=== PATIENT | female | born 1970 | race Caucasian/White ===

== ENCOUNTER 2023-05-08 10:33 | Outpatient (REF) | payer OTHER, SELFPAY ==
--- NOTE | 2023-05-08 09:30 | PAPFT_PTH ---
PATIENT: Atiya Sharma LOC: [facility]#:[id number] AGE/SX: 52/F ROOM: RE05/08/[address]: Mak Darby : 1970 BED: DIS: 05/08/2023 SPEC #: [id number] RECD: 05/09/23 13:02 STATUS: NIR REJohn #: [id number] DIONISIO: 05/08/23 09:[address]: Maureen Darby DEPT: [facility] Cytology RECD BY: Lexie Gonzales Tissues: 1 - CX/ENDOCX FOR PAP SMEARS Procedures: PAP THIN PREP/UVM Screening HPV DNA PROBE Comments: [id number]
== END 2023-05-08 10:34 | disposition home or self-care (01) ==
LOC: NCHCN 10:33
PROVIDERS: Visit Provider Nurse Practitioner Family
DX: Z12.4 Encounter for screening for malignant neoplasm of cervix (principal); Z11.51 Encounter for screening for human papillomavirus (HPV)
CPT/HCPCS: 88142; 87624

== ENCOUNTER → 2023-06-12 01:07 | Outpatient (CLI) | payer OTHER, SELFPAY ==
--- NOTE | 2023-06-12 | DI.MAMMO_ITS ---
Exam(s) MAMMO SCREENING EXAM: MAMMO SCREENING CLINICAL HISTORY: SCREENING, Z12.39. TECHNIQUE: Bilateral full field digital CC and MLO mammographic images were obtained with 3D tomosyn thesis and utilizing computer aided detection (CAD). COMPARISON: Prior outside mammograms were reviewed. FINDINGS: There has been no significant change in the appearance and distribution of the fibroglandular tissue. There are no CAD designations. No new findings in the right breast. In the left breast there are 2 small benign-appearing nodular densities located 7 cm in from the nipp le on the CC view and appearing unchanged from prior mammograms. There are no new spiculated masses nor malignant-appearing microcalcification groups in either breast . There is no significant architectural distortion nor skin thickening-retraction. IMPRESSION: Stable benign findings. No radiographic evidence of malignancy. BI-RADS Category 2 - Benign Findings Breast Density - Category B - Scattered areas of fibroglandular density Breast density Category C or D implies that the patient has dense breast tissue. Dense breast tissue can make it harder to find cancer on a mammogram. Dense breast tissue is also associated with an incr eased risk of breast cancer. This information about the result of the mammogram report was provided to the patient to raise their awareness. Use this report when you speak with the patient about their risks for breast cancer, which includes their family history. At that time, you may recommend additional screening tests (Ultrasoun d or MRI) as these tests may add significant information. A negative radiographic report should not delay biopsy if a dominant or clinically suspicious mass is present. Up to ten percent of cancers are not identified on mammography. A negative report may reinforce clinical impression. Adenosis and dense breasts may obscure an underlying neoplasm. False positive reports average 6 to 10%. Patient will receive a letter notifying them of these results.
== END ==
PROVIDERS: PCP Nurse Practitioner Family; Visit Provider Nurse Practitioner Family
DX: Z12.31 Encounter for screening mammogram for malignant neoplasm of breast (principal)
CPT/HCPCS: 77063; 77067

== ENCOUNTER 2023-12-25 06:05 | Day surgery (SDC) | payer OTHER, SELFPAY ==
--- NOTE | 2023-12-24 11:29 | W.PM.DSUDISC ---
Date of service: 12/25/23 Time of Service: 07:56 Discharge Plan Disposition Patient Disposition: Home Condition: Good Discharge Details Reason For Visit: screening colonoscopy Attending Provider: Devaughn Jaime Primary Care Provider: Maureen Darby Home Meds and New Rx's Prescriptions: Continued naproxen 250 mg tablet 500 mg PO BID PRN Discharge Instructions Additional Instructions: Krystal, we were able to complete your colonoscopy today without any difficulty. He did have a little bit of inflammation in the lower portion of your rectum, which is also called proctitis. From the look of it, I suspect it is just some irritation from the bowel prep. Regardless, I did do some biopsies just to be safe. I really do not think this is anything at all to worry about. Otherwise, your colonoscopy is totally normal. Once I have the results of the biopsies I will be in touch. We will use that information to help inform the timing of your next colonoscopy. 1. If tolerated, consume a soft, low fiber diet for 1-2 days. 2[address] Do not drive, drink alcohol, operate machinery, make critical decisions, or do activities that require coordination or balance for 24 hours. 3. Because air was put into your colon during the procedure, expelling air from your rectum (passing gas or farting) is normal. 4. You may not have a bowel movement for 1-3 days because of the colonoscopy prep. This is normal. 5. Go directly to the emergency room if you notice any of the following: Develop chills (warm to touch), or if you have a thermometer and your temperature is above 101 Difficulty breathing or difficultly swallowing Persistent vomiting Severe abdominal pain, other than gas cramps Severe chest pain Black, tarry stools Any bleeding ? exceeding one tablespoon 6. Call your physician if the site where your intravenous was started becomes red, swollen, painful, and warm to touch. 7. Your physician has reviewed your pre-procedure medications. Please continue to take those medications as previously ordered. You will be given specific information/education regarding any changes to your medications before leaving. Activity:: Activity as Tolerated Diet:: As Tolerated Discharge Orders Discharge Orders: Discharge Order (Routine); Ordered 12/24/23 Ordered By: Devaughn Jaime DS: Diagnosis Discharge Diagnosis (1) Encounter for screening colonoscopy: Status: Acute Asessment and Plan: Follow-up on biopsy results
--- NOTE | 2023-12-24 11:31 | COLE_ITS ---
Date of service: 12/25/23 Time of Service: 07:57 Colonoscopy Report Date of procedure: 12/25/23 Pre-op diagnosis general: screening colonoscopy Post-op diagnosis procedure note: other (Negative screening colonoscopy) Procedure: colonoscopy with biopsies Surgeon: Devaughn Jaime Anesthesia Type: General:No Airway Estimated blood loss (mL): 5 Pathology: other (Rectal biopsies) Complications: None Disposition: same day Indications: Atiya is a 52 year old woman who needs a screening colonoscopy Prep: Miralax/Dulcolax Procedure Start Time: 07:33 Procedure End Time: 07:48 Retraction Time: 5 Findings: Mild proctitis Procedure Description: After the induction of monitored anesthetic care, and with the patient in left lateral decubitus position, I began by performing an external anorectal exam.? Perineum and skin were normal, as was the anal verge.? There was no evidence of external hemorrhoids.? Next, I performed a digital rectal exam.? I did not appreciate any abnormal findings.? Next, I advanced a colonoscope into the rec bettie vault.? I performed retroflexion.? This appeared normal.? In the midportion of the rectum, there was a little bit of inflammation consistent with some mild proctitis. It was limited to a small patch in the midportion. Cold forceps biopsies were performed. Nothing else was worrisome about this. Using insufflation, I then advanced the colonoscope beyond the rectal folds and into the sigmoid colon before advancing towards the cecum.? The scope was noted to be in the cecum by identification of the ileocecal valve and appendiceal orifice.? I then began withdrawing the colonoscope using repeated irrigation as necessary for full evaluation of the colonic mucosa. ?Once the scope was withdrawn to the level of the rectum, great care was taken to examine portions of the rectal folds.? Aside from the small amount of proctitis, I did not see any other signs of polyps, tumors, or any other worrisome pathology. Finally, the scope was withdrawn and the patient was brought to the same-day surgery recovery unit as the anesthetic wore off. ?The findings and instructions were shared with the patient prior to discharge.
[2023-12-25 06:15] VITALS: BP 124/81; PULSE 79; RESP 16; TEMP 36.6; O2SAT 98
[2023-12-25] MEDS: Lactated Ringers 1,000 ML 80 ML IV (06:35)
--- NOTE | 2023-12-25 07:06 | W.ANESPRE ---
General Info Date of Service Date Performed: 12/25/23 Height: 5 ft 8 in Weight: 74.5 kg Body Mass Index (BMI): 25.0 Surgical Procedure: Operation Date: 12/25/23 07:35 Proposed Procedure Side Surgeon p Colonoscopy Devaughn Jaime MD Meds Allergies and Home Medications Allergies Allergy/AdvReac Type Severity Reaction Status Date / Time codeine AdvReac Severe vomiting Verified 12/25/23 06:15 Home Medication Medication Instructions Recorded naproxen 250 mg tablet 500 mg PO BID PRN 11/20/23 Current Visit Medications: Current Medications Generic Name Dose Route Start Last Admin Trade Name Freq PRN Reason Stop Dose Admin Hyoscyamine Sulfate 0.125 mg 12/24/23 11:32 Hyoscyamine 0.125 Mg Sl/Oral/Chew SL 01/23/24 11:31 DIRECTED PRN Ringer's Solution 1,000 mls @ 80 mls/hr 12/25/23 06:00 12/25/23 06:35 IV 01/21/24 23:59 80 mls/hr INFUSION [place] Administration IV Miscellaneous Supplies 1 each 12/25/23 06:00 Iv Access IV 01/21/24 23:59 DIRECTED [place] Ondansetron HCl 4 mg 12/24/23 11:32 Ondansetron 4 Mg/2 Ml Vial IVP 01/23/24 11:31 Q4H PRN PRN Nausea / Vomiting Sodium Chloride 0 ml 12/25/23 06:00 Normal Saline Flush 10 Ml Syr IV 01/21/24 23:59 PRN PRN Sodium Chloride 0 ml 12/25/23 06:00 Normal Saline 10 Ml Vial IJ 01/21/24 23:59 DIRECTED PRN Sterile Water 0 ml 12/25/23 06:00 Water,Injection,Sterile 10 Ml Vial IJ 01/21/24 23:59 DIRECTED PRN PFSH Active Problems Active Problems: Problem Status Onset Code Encounter for screening colonoscopy Z12.11 Medical History Medical History Knee pain, chronic Migraine headache with aura Surgical History Surgical History Hx of appendectomy H/O adenoidectomy Pt. denies S/P tubal ligation (~2000) Tobacco Smoking/Tobacco Use Status: Never Alcohol Alcohol Intake: current Alcohol intake frequency: holidays/special occasions only Substance Use Substance use: Never Vital Signs and Lab Results Vital Signs Most Recent Vital Signs in EMR: Most Recent Vital Signs Temp Pulse Resp BP Pulse Ox 36.6 C 79 16 124/81 98 12/25/23 06:15 12/25/23 06:15 12/25/23 06:15 12/25/23 06:15 12/25/23 06:15 Lab Results Blood Type / Crossmatch: No Data to Display Complete Blood Count: No Data to Display Complete Metabolic Panel: No Data to Display Liver Function Panel: No Data to Display Coagulation Panel: No Data to Display Cardiac Panel: No Data to Display Arterial Blood Gas: No Data to Display Venous Blood Gas: No Data to Display Pancreas Panel: No Data to Display Thyroid Panel: No Data to Display Infectious Disease: No Data to Display Blood Cultures: No Data to Display Toxicology Panel: No Data to Display Panel: No Data to Display Anesthesia Assessment and Plan Anesthesia History Personal History: No History of Anesthesia Complications Family History: No Family History of Anesthesia Complications Exercise Tolerance Exercise Tolerance: Metabolic Equivalents>4 Pertinent Negatives Pertinent Negatives: No Symptoms of GERD Cardiac & Pulmonary Exam Cardiac Exam: Normal S1/S2 Heart Sounds Pulmonary Exam: Clear Bilateral Breath Sounds Implantable Cardiac Device Does patient have a Pacemaker or an ICD?: No Airway Exam Known Difficult Airway: No Mallampati Class: 1 Mouth Opening: Normal (> 3cm) Thyromental Distance: Greater than 3 cm Neck Range of Motion: Full ROM Neck Circumference: Normal Teeth Condition: Normal Dentition ASA Classification ASA Score: ASA 2 Emergency Case?: No NPO Status NPO Status: NPO Clears >2 hours, Solids >8 hours Status Status: Not Relevant due to Medical History Anesthesia Plan Resuscitation Status: Full Code Anesthesia Technique: General Anesthesia Airway Planned: Natural Airway Monitors Used: Standard Monitors
[2023-12-25 07:09] VITALS: BMI 25.0
--- NOTE | 2023-12-25 07:35 | BOWEL_PTH ---
PATIENT: Atiay Sharma LOC: [facility]#:[id number] AGE/SX: 52/F ROOM: RE12/25/[address]: Devaughn Jaime MD : 1970 BED: DIS: 12/25/2023 SPEC #: [id number] RECD: 12/25/23 12:02 STATUS: NIR REQ #: [id number] DIONISIO: 12/25/23 07:[address]: Devaughn Jaime DEPT: Surgical Specimen RECD BY: Lexie Gonzales ENTERED: 12/25/23 12:02 SP TYPE: Bowel OTHR DR: Mak Darby Tissues: 1 - BIOPSY BOWEL Procedures: GROSS AND MICRO LEVEL 4 Comments: [id number]
[2023-12-25 07:54] VITALS: BP 117/57; PULSE 88; RESP 16; TEMP 36.5; O2SAT 100
--- NOTE | 2023-12-25 08:20 | W.ANESPOSTOP ---
Postoperative Evaluation Date, Time and Location Date Performed: 12/25/23 Time Performed: 08:05 Patient Location: Day Surgery Unit Vital Signs Most Recent Imported Vital Signs: Most Recent Vital Signs Temp Pulse Resp BP Pulse Ox 36.5 C 88 16 117/57 L 100 12/25/23 07:54 12/25/23 07:54 12/25/23 07:54 12/25/23 07:54 12/25/23 07:54 Pain Score Most Recent Pain Score: Most Recent Pain Score Pain Level 0 12/25/23 07:54 Assessment Mental Status: Arousable with meaningful communication Airway and Respiratory Function: Patent airway with normal (patient baseline) respiratory exam Cardiovascular Function: Hemodynamically Stable Hydration Status: Adequately Hydrated Nausea & Vomiting: No Nausea or Vomiting Pain: Pt. Denies Any Pain Peripheral Nerve Block: Patient did not receive a nerve block
[2023-12-25 08:21] VITALS: BP 112/65; PULSE 78; RESP 16; TEMP 36.5; O2SAT 99
== END 2023-12-25 08:35 | disposition home or self-care (01) ==
LOC: SUR 06:06
PROVIDERS: PCP Nurse Practitioner Family; Visit Provider Surgery
PROC: 0DJD8ZZ Inspection of Lower Intestinal Tract, Via Natural or Artificial Opening Endoscopic (ICD-10-PCS; CPT 45378; principal; 2023-12-25 07:30)
DX: Z12.11 Encounter for screening for malignant neoplasm of colon (principal)
CPT/HCPCS: 45380; 88305; J2704

== ENCOUNTER 2024-06-17 03:32 | Outpatient (CLI) | payer OTHER, SELFPAY ==
--- NOTE | 2024-06-17 12:40 | DI.MAMMO_ITS ---
Exam(s) MAMMO SCREENING EXAM: MAMMO SCREENING CLINICAL HISTORY: Screening, Z12.39. TECHNIQUE: Bilateral full field digital CC and MLO mammographic images were obtained with 3D tomosyn thesis and utilizing computer aided detection (CAD). COMPARISON: Prior mammograms were reviewed. FINDINGS: There has been no significant change in the appearance and distribution of the fibroglandular tissue. Benign-appearing nodule in left breast on CC view remains unchanged from prior mammograms There are no new spiculated masses nor new malignant appearing microcalcification groups. There is no significant architectural distortion nor skin thickening-retraction. IMPRESSION: No radiographic evidence of malignancy. Stable benign findings. BI-RADS Category 2 - Benign Findings Breast Density - Category B - Scattered areas of fibroglandular density Breast density Category C or D implies that the patient has dense breast tissue. Dense breast tissue can make it harder to find cancer on a mammogram. Dense breast tissue is also associated with an incr eased risk of breast cancer. This information about the result of the mammogram report was provided to the patient to raise their awareness. Use this report when you speak with the patient about their risks for breast cancer, which includes their family history. At that time, you may recommend additional screening tests (Ultrasoun d or MRI) as these tests may add significant information. A negative radiographic report should not delay biopsy if a dominant or clinically suspicious mass is present. Up to ten percent of cancers are not identified on mammography. A negative report may reinforce clinical impression. Adenosis and dense breasts may obscure an underlying neoplasm. False positive reports average 6 to 10%. Patient will receive a letter notifying them of these results.
== END 2024-06-17 03:52 ==
LOC: DI 03:32
PROVIDERS: PCP Nurse Practitioner Family; Visit Provider Nurse Practitioner Family
DX: Z12.31 Encounter for screening mammogram for malignant neoplasm of breast (principal)
CPT/HCPCS: 77063; 77067

== ENCOUNTER 2025-05-19 16:26 | Outpatient (REF) | payer OTHER, SELFPAY ==
[2025-05-19 20:00] LABS: HCT 42.2 % (36.0-46.0); HGB 13.6 g/dL (11.2-15.7); MCH 28.6 pg (27.0-33.0); MCHC 32.2 % (32.0-36.0); MCV 89 fL (80-95); MPV 10.6 fL (8.0-11.0); Platelet Count 325 10^3/uL (130-400); RBC 4.75 10^6/uL (3.93-5.22); RDW 13.1 % (11.7-14.6); RDW-SD 42.8 fL; WBC 5.11 10^3/uL (4.4-10.8)
[2025-05-19 20:10] LABS: Anion Gap 6.6 mmol/L (3-11); BUN 14 mg/dL (7-18); CO2 29.4 mmol/L (21.0-32.0); Calcium 9.2 mg/dL (8.5-10.1); Calculated LDL 143 mg/dL (<100); Chloride 107 mmol/L (98-107); Cholesterol 217 mg/dL (<200); Estimated GFR 76.92 (mL/min/1.73m2); Glucose 111 mg/dL (74-106); HDL Cholesterol 63 mg/dL (>or=50); Potassium 4.0 mmol/L (3.5-5.1); Sodium 143 mmol/L (136-145); TSH (W/Ref FT4) 1.70 uIU/mL (0.36-3.74); Triglyceride 56 mg/dL (<150)
== END 2025-05-19 16:27 | disposition home or self-care (01) ==
LOC: NCHCN 16:26
PROVIDERS: PCP Nurse Practitioner Family; Visit Provider Nurse Practitioner Family
DX: Z13.220 Encounter for screening for lipoid disorders (principal); Z13.1 Encounter for screening for diabetes mellitus; R63.5 Abnormal weight gain; R53.83 Other fatigue
CPT/HCPCS: 80048; 80061; 85027; 84443

== ENCOUNTER 2025-06-23 07:15 | Outpatient (CLI) | payer OTHER, SELFPAY ==
--- NOTE | 2025-06-23 | DI.MAMMO_ITS ---
Exam(s) MAMMO SCREENING EXAM: MAMMO SCREENING CLINICAL HISTORY: SCREENING MAMMO Z12.31 TECHNIQUE: Mammograms were interpreted according to the usual protocol including computer analysis with CAD system, tomosynthesis and C-view imaging. COMPARISON: 2016 through 2023 FINDINGS: The breasts are composed of scattered fibroglandular densities, Breast Density category B. No suspicious masses or suspicious microcalcifications are seen. No skin thickening or abnormal axillary lymph nodes are seen. There has been no significant change from prior exams. IMPRESSION: BI-RADS Category 1, Negative mammogram Yearly screening mammography is recommended. Breast Density - Category B - There are scattered areas of fibroglandular density. Breast density Category C or D implies that the patient has dense breast tissue. Dense breast tissue can make it harder to find cancer on a mammogram. Dense breast tissue is also associated with an increased risk of breast cancer. This information about the result of the mammogram report was provided to the patient to raise their awareness. Use this report when you speak with the patient about their risks for breast cancer, which includes their family history. At that time, you may recommend additional screening tests (Ultrasound or MRI) as these tests may add significant information. A negative radiographic report should not delay biopsy if a dominant or clinically suspicious mass is present. Up to ten percent of cancers are not identified on mammography. A negative report may reinforce clinical impression. Adenosis and dense breasts may obscure an underlying neoplasm. False positive reports average 6 to 10%. Patient will receive a letter notifying them of these results.
== END 2025-06-23 07:35 ==
LOC: DI 07:15
PROVIDERS: PCP Nurse Practitioner Family; Visit Provider Nurse Practitioner Family
DX: Z12.31 Encounter for screening mammogram for malignant neoplasm of breast (principal); R92.323 Mammographic fibroglandular density, bilateral breasts
CPT/HCPCS: 77063; 77067